=== PATIENT | female | born 1960 | race Caucasian/White ===

== ENCOUNTER 2022-05-27 09:51 | Day surgery (SDC) | payer BC ==
[~2022-05-27] VITALS: Ht 157.5 cm; Wt 72.7 kg
[~2022-05-27 09:51] MED LIST: ATIVAN1 MG PO; LISINOPRIL10 MG PO; METOPROLOL SUCC25 MG PO; OMEPRAZOLE20 MG PO; ULTRAM50 MG PO
--- NOTE | 2022-05-27 12:24 | NUR ---
05/27/22 1224 Meredith Goode 1220- PT ARRIVES TO PACU AWAKE AND TALKING. PT REPORTS NO PAIN OR NAUSEA. RESP EVEN AND UNLABORED. OXYGEN SAT HIGH 90'S TO 100% ON 2L VIA NC. 1222- PT PASSING FLATUS.
--- NOTE | 2022-05-31 21:23 | OR ---
[facility] [address] [place], [place] [address] Signed DATE OF OPERATION: 05/27/2022 SURGEON: Wilton Bentley MD PREOPERATIVE DIAGNOSES: 1. Longstanding gastroesophageal reflux. 2. Left lower abdominal pain with rectal bleeding. POSTOPERATIVE DIAGNOSES: 1. Kvcdc-vt-[id number] hiatal hernia without obvious esophagitis. 2. Gloria-diverticular disease. 3. Two small polyps, low rectum (excised). PROCEDURES: 1. Esophagogastroduodenoscopy with biopsy. 2. Total colonoscopy to cecum with cold snare polypectomy x1 and cold morcellation polypectomy x1. INDICATIONS: This 62-year-old white woman is a patient . She has had complaints recently of left lower abdominal pain and episodic rectal bleeding. She is known to have diverticulosis. Additionally, she has longstanding gastroesophageal reflux, for which she takes PPI medication. She has no dysphagia, but is still troubled by episodic symptoms of reflux and mild dysphagia from time to time. She is admitted at this time to undergo upper endoscopy and colonoscopy. She understands the risks of bleeding, infection, perforation findings upper endoscopy showed a small hiatal hernia. The esophagus itself was normal. There was no sign of Nichols epithelium, stricture, or neoplasm. The stomach and duodenum were overall normal. CLOtest was negative. On colonoscopy, the prep was excellent. Complete colonoscopy was undertaken of the cecum without question. She had diverticula throughout the entire colon and most dominantly in the sigmoid. There were two small polyps in the low rectum probably hyperplastic, but both were excised one with cold snare technique, the other with cold morcellation technique. DESCRIPTION OF PROCEDURE: The patient was brought to the endoscopy suite given topical lidocaine hypopharyngeal anesthesia. A bite block was placed. After intravenous sedation induced to a level of slurred speech and nystagmus. Full cardiopulmonary monitoring was maintained. Electronically Signed By: WILTON BENTLEY MD 05/31/22 2123 PATIENT NAME: SHELBI JOHNSTON OPERATIVE REPORT DATE OF : 62 REPORT #: [id number] PHYSICIAN: WILTON BENTLEY MD PCP: NASREEN GONZALEZ PA-C REPORT IS CONFIDENTIAL AND NOT TO BE RELEASED WITHOUT AUTHORIZATION [facility] [address] [place], [place] [address] Signed An Olympus video upper endoscope was passed into the hypopharynx. The vocal cords appeared normal. Scope was advanced to the esophagus, throughout its length it was normal. Scope was advanced to the stomach, which was insufflated with air. Rugal folds were normal as was the antral motility. Pylorus was normal. Scope was passed through into the duodenum, which was normal. Biopsies were taken there to assess for celiac disease. The scope was withdrawn. A biopsy was then taken of the antrum for both LV and pathologic testing. Retroflexed view was undertaken initially showing a reasonably good flap valve with minimal manipulation, [id number] hiatal hernia was confirmed. The scope was straightened and withdrawn and biopsies taken of the distal esophageal mucosa, although there was no evidence of Nichols epithelium, stricture, neoplasm, or even inflammation particularly. Further withdrawal showed normal mid esophagus, which was biopsied, nevertheless. The scope was withdrawn and removed. Plans were then made for colonoscopy. Additional sedation was given. Digital rectal examination performed showing no anorectal problem. An Olympus video colonoscope was passed into the rectum and manipulated throughout the colon noting numerous diverticula in the sigmoid and left colon. Scope was ultimately advanced to the cecum. The ileocecal valve and appendiceal orifice were normal. Scope was withdrawn, examination throughout showed no sign of abnormality other than diverticulosis extending from right colon, transverse, left and most dominantly in the sigmoid. In the lower aspect of the rectum were two small polyps, possibly hyperplastic, one was excised with cold morcellation technique and the other with cold snare technique. There were no other findings of note at that time. The scope was removed. The patient was taken to the recovery room in good condition. CONCLUDING DIAGNOSES: 1. Gastroesophageal reflux related to a small hiatal hernia, no evidence of active esophagitis. 2. Diverticulosis extending throughout the entire colon, most dominantly sigmoid; two small polyps of rectum. PLAN: Recommend high-fiber diet or a fiber supplement such as Citrucel one scoop p.o. daily. As regard to reflux, we would have her continue with Prilosec on a daily basis. She will call us if her rectal bleeding persists, at which time further evaluation will be undertaken. She will otherwise return to the ongoing care of . Wilton Bentley MD Electronically Signed By: WILTON BENTLEY MD 05/31/222122 PATIENT NAME: SHELBI JOHNSTON OPERATIVE REPORT DATE OF : 62 REPORT #: [id number] PHYSICIAN: WILTON BENTLEY MD PCP: NASREEN GONZALEZ PA-C REPORT IS CONFIDENTIAL AND NOT TO BE RELEASED WITHOUT AUTHORIZATION [address] [place], [place] [address] Signed /[facility] /[id number] Copies: ~ Electronically Signed By: WILTON BENTLEY MD 05/31/222122 PATIENT NAME: SHELBI JOHNSTON OPERATIVE REPORT DATE OF : 62 REPORT #: [id number] PHYSICIAN: WILTON BENTLEY MD PCP: NASREEN GONZALEZ PA-C REPORT IS CONFIDENTIAL AND NOT TO BE RELEASED WITHOUT AUTHORIZATION
--- NOTE | 2022-06-02 11:06 | PATH ---
[facility] [address] [place], [place] [address] Signed SPECIMEN(S): A DUODENAL BIOPSY SPECIMEN(S): B ANTRUM/ANTRAL BIOPSY SPECIMEN(S): C DISTAL ESOPHAGEAL BIOPSY SPECIMEN(S): D RECTAL POLYP SPECIMEN(S): E RECTAL POLYP SPECIMEN SOURCE: A. DUODENAL BIOPSY B. ANTRUM/ANTRAL BIOPSY C. DISTAL ESOPHAGEAL BIOPSY D. RECTAL POLYP E. RECTAL POLYP CLINICAL HISTORY: History of polyps; rectal bleeding; GERD; dysphagia. Postop diagnosis: Hiatal hernia; rectal polyps; diverticulosis FINAL PATHOLOGIC DIAGNOSIS: A. Duodenum, biopsy: - Duodenal mucosa with Brandie's gland hyperplasia. - Negative for increased intraepithelial lymphocytes or villous blunting. - Negative for dysplasia or malignancy. B. Stomach, antrum, biopsy: - Antral mucosa with no histopathologic abnormality. - Negative for Helicobacter organisms on HE stain. - Negative for dysplasia or malignancy. C. Esophagus, distal, biopsy: - Squamous mucosa with mild reactive changes. - Negative for intestinal metaplasia, dysplasia, or malignancy. D. Designated "rectum, x2, polypectomy" per requisition: - Minute fragment of superficial squamous epithelium with no histopathologic abnormality. - Negative for increased intraepithelial eosinophils. - Negative for intestinal metaplasia, dysplasia, or malignancy. - See Comment. E. Designated "x2" per specimen container, biopsy: - Hyperplastic polyps. - Negative for dysplasia or malignancy. - See Comment. COMMENT: PATIENT NAME: VICKIESHELBISOFYA CALABRESE PATHOLOGY DATE OF : 62 REPORT #: [id number] PHYSICIAN: MORALES PATHOLOGY PCP: NASREEN GONZALEZ PA-C REPORT IS CONFIDENTIAL AND NOT TO BE RELEASED WITHOUT AUTHORIZATION [facility] [address] [place], [place] [address] Signed The op note was reviewed. It is noted the mid esophagus was biopsied but not included on the requisition form or the specimen container designations. The specimen labeled "D" is likely from the mid-esophagus, not the rectum. The specimen labeled "E" is likely the rectum polypectomies. Please correlate clinically. NAL:cml:[id number] MICROSCOPIC EXAMINATION: Histologic sections of all submitted blocks are examined by light microscopy. These findings, together with the gross examination, support the pathologic diagnosis. GROSS DESCRIPTION: Five specimens are received in five containers, labeled "Vickie." A. The specimen, labeled "Vickie, 1," is received in formalin and consists of four fragments of cheney tissue measuring 0.2 cm and 0.3 cm in greatest dimension. The specimens are submitted entirely in A1. B. The specimen, labeled "Vickie, 2," is received in formalin and consists of two fragments of cheney tissue measuring 0.2 cm and 0.3 dimension. The specimens are submitted entirely in B1. C. The specimen, labeled "Vickie, 3," is received in formalin and consists of three fragments of white tissue; each measuring 0.4 cm in greatest dimension. The specimens are submitted entirely in C1. D. The specimen, labeled "Vickie, 4," is received in formalin and consists of a single fragment of white tissue (0.5 dimension). The specimen is submitted entirely in D1. E. The specimen, labeled "Vickie, 5 (2)," is received in formalin and consists of two fragments of cheney tissue; each measuring 0.3 cm in greatest dimension. The specimens are submitted entirely in E1. Per requisition, sample D is labeled as x2. It has been confirmed with surgery that both parts D and E are same type of sample. This matches the requisition. Five samples, five bottles KD (under the direct supervision of a pathologist) The Gross Description was prepared using a voice recognition system. The report was reviewed for accuracy; however, sound-alike word errors, addition and/or deletions may occur. If there is any question about this report, please contact Client Services. PERFORMING LABORATORY: The technical component was performed by [facility], [address] [place] [id number] (CLIA# [id number]). Professional interpretation was PATIENT NAME: SHELBI JOHNSTON PATHOLOGY DATE OF : 62 REPORT #: [id number] PHYSICIAN: MORALES FONSECA PCP: NASREEN GONZALEZ PA-C REPORT IS CONFIDENTIAL AND NOT TO BE RELEASED WITHOUT AUTHORIZATION [facility] [address] [place], [place] [address] Signed [email or web address], [address] [address] (CLIA# [id number]). Diagnostician: Candie Samuel MD Pathologist Electronically Signed 06/02/2022 Copies: ~ PATIENT NAME: SHELBI JOHNSTON PATHOLOGY DATE OF : 62 REPORT #: [id number] PHYSICIAN: MORALES PATHOLOGY PCP: NASREEN GONZALEZ PA-C REPORT IS CONFIDENTIAL AND NOT TO BE RELEASED WITHOUT AUTHORIZATION
== END 2022-05-27 13:04 | disposition home or self-care (01) ==
LOC: OPS 09:51 → DS 09:51 → OPS 13:04
PROVIDERS: ATTEND Surgery
PROC: 0DBP8ZX Excision of Rectum, Via Natural or Artificial Opening Endoscopic, Diagnostic (ICD-10-PCS; 2022-05-27)
PROC: 0DBP8ZX Excision of Rectum, Via Natural or Artificial Opening Endoscopic, Diagnostic (ICD-10-PCS; 2022-05-27)
PROC: 0DB98ZX Excision of Duodenum, Via Natural or Artificial Opening Endoscopic, Diagnostic (ICD-10-PCS; principal; 2022-05-27 12:15)
PROC: 0DB68ZX Excision of Stomach, Via Natural or Artificial Opening Endoscopic, Diagnostic (ICD-10-PCS; 2022-05-27 12:15)
DX: K62.1 Rectal polyp (principal); K44.9 Diaphragmatic hernia without obstruction or gangrene; K57.31 Diverticulosis of large intestine without perforation or abscess with bleeding; K21.00 Gastro-esophageal reflux disease with esophagitis, without bleeding; R09.89 Other specified symptoms and signs involving the circulatory and respiratory systems; I10 Essential (primary) hypertension; Z86.16 Personal history of COVID-19; Z88.5 Allergy status to narcotic agent; Z88.2 Allergy status to sulfonamides
CPT/HCPCS: 99153; G0500; J2250; J3010; J7121